=== PATIENT | female | born 1980 | race American Indian/Alaskan Native ===

== ENCOUNTER 2017-12-12 11:41 | Emergency (ER) | payer BC, OTHER ==
--- NOTE | 2017-12-12 16:00 | RAD ---
PROCEDURE: Right middle finger radiographs. HISTORY: pain and swelling to the PIP joint COMPARISON: None available. TECHNIQUE: AP radiograph of the right hand, as well as spot oblique and lateral images of right middle finger were obtained. FINDINGS: RIGHT MIDDLE FINGER: Right middle finger appears unremarkable without evidence of acute displaced fracture. Remainder of the right hand (as seen on the AP view) grossly unremarkable. JOINTS: No dislocation. SOFT TISSUES: No evidence of radiopaque foreign body. OTHER FINDINGS: None. IMPRESSION: No acute displaced fracture or subluxation identified.
--- NOTE | 2017-12-12 16:02 | C.PDOC ---
History Of Present Illness 37-year-old female, presents to the emergency department with complaints of pain to third finger on right hand after she banged her hand against a hard object three days ago. Patient notes progressive swelling and pain to the area since. She denies any other injuries or weakness. Time Seen by Provider: 12/12/17 14:02 Chief Complaint (Nursing): Finger,Hand,&Wrist History Per: Patient History/Exam Limitations: no limitations Onset/Duration Of Symptoms: Days Current Symptoms Are (Timing): Still Present Past Medical History Reviewed: Historical Data, Nursing Documentation, Vital Signs Vital Signs: Last Vital Signs Temp 97.9 F 12/12/17 16:14 Pulse 72 12/12/17 16:14 Resp 72 H 12/12/17 16:14 BP 122/80 12/12/17 16:14 Pulse Ox 99 12/12/17 17:52 Family History: States: No Known Family Hx - Social History Hx Alcohol Use: No Hx Substance Use: No - Immunization History Hx Tetanus Toxoid Vaccination: No Hx Influenza Vaccination: No Hx Pneumococcal Vaccination: No Review Of Systems Constitutional: Negative for: Fever Gastrointestinal: Negative for: Vomiting Musculoskeletal: Positive for: Hand Pain (right, third finger) Neurological: Negative for: Weakness, Numbness Physical Exam - Physical Exam Appears: Non-toxic, No Acute Distress Skin: Warm, Dry, No Rash Extremity: Other (Right upper extremity: third digit with tenderness, and mild swelling to PIPJ and proximal finger.) Neurological/Psych: Oriented x3, Normal Speech ED Course And Treatment O2 Sat by Pulse Oximetry: 99 (on RA) Pulse Ox Interpretation: Normal Medical Decision Making Medical Decision Making: Finger splint was applied by in for sprain. Disposition - Disposition Referrals: Rivera Michel MD [Staff Provider] - Disposition: HOME/ ROUTINE Disposition Time: 16:00 Condition: GOOD Additional Instructions: Follow up with the medical doctor/clinic within 1-2 days without fail. Return if worsened. Prescriptions: Acetaminophen [Tylenol] 325 mg PO Q6 PRN #30 tab PRN Reason: Pain, Mild (1-3) Ibuprofen [Motrin] 1 tab PO TID PRN #30 tab PRN Reason: Pain Instructions: Finger Sprain (ED) Forms: [facility] (Tu[place]uan), Work Excuse - Clinical Impression Clinical Impression: Finger sprain - Scribe Statement The provider has reviewed the documentation as recorded by the Scribe (Dahlia Garcia) All medical record entries made by the Scribe were at my direction and personally dictated by me. I have reviewed the chart and agree that the record accurately reflects my personal performance of the history, physical exam, medical decision making, and the department course for this patient. I have also personally directed, reviewed, and agree with the discharge instructions and disposition.
[2017-12-12 16:15] VITALS: BP 122/80; PULSE 72; RESP 72; TEMP 97.9
[2017-12-12 17:45] VITALS: O2SAT 99
== END 2017-12-12 16:15 | disposition home or self-care (01) ==
LOC: C.ER 11:41 → EDSEX 11:41 → C.ER 16:15
DX: S63.612A Unspecified sprain of right middle finger, initial encounter (principal); W22.8XXA Striking against or struck by other objects, initial encounter; Y92.9 Unspecified place or not applicable